=== PATIENT | female | born 1930 | race Caucasian/White ===

== ENCOUNTER → 2017-01-07 | Outpatient (CLI) | payer MEDICARE ==
[~2017-01-07] MED LIST: ASP325T; ASP325T PO; ASP81CT; ASP81CT PO; ASP81TEC; ASPI-86; ASPI-892; ATN50T; CA C1TAB26 PO; CHOL10002 PO; CHOL10003 PO; CHOL200035 PO; CLOP75TA; CLOP75TA PO; CLPD75T; COD LIVER OIL; CSPT25; D50KC; DIAZ2TAB2; DIAZ2TAB2 PO; DIAZEPAM PO; DIGO125T PO; DIGO125T18 PO; DILT30TA PO; DILT30TA30 PO; DZPM2T; EZET10TA5; FISH OIL 1,2001 EAC1 PO; FURO-125 PO; FURO20TA4 PO; HCTZ; HYDR-3720 PO; IBUP-30 PO; ISM30TCR; LEVO250T7 PO; LEVO25TA5 PO; LISI10TA2 PO; LOSA50TA36 PO; LOVAZA; MECL25TA56 PO; METO-272 PO; METO-352 PO; NTR.4SL; OMG1KC; ONDA4TAB10 PO; ONDN4T PO; POTA10CA43 PO; POTA10TA36 PO; POTA10TA6 PO; PRAV20TA3 PO; PRV20T PO; RANI150T11 PO; RIVA20TA2 PO; RNT150T PO; SCP1.5TD TOP; SOTA120T PO; SOTA80TA; SOTA80TA PO; TRIAM; TRM50T PO; VIT D OTC; VITAMIN D; WRF2.5T; WRF5T
--- OUTSIDE RECORDS SUMMARY | 2017-01-07 09:54 | XMS REPORT | Continuity of Care Document ---
Author Author [facility] Organization [facility] Address Unknown Phone Unavailable Care Team Providers Care Hardness Inspector Name Role Phone Unverified, Unverified PCP Unavailable Source Comments Some departments are not documenting in the electronic medical record. If you do not see the information that you expected, contact Release of Information in the Health Information Management department at [phone] for further assistance in locating additional records.[facility] Active Allergies and Adverse Reactions Allergen Noted Date Severity Reactions Comments Codeine 08/24/2011 SYNCOPE Demerol (Pf) 08/24/2011 STOMACH UPSET, SYNCOPE Penicillins 08/24/2011 HIVES Current Medications Prescription Sig. Disp. Refills Start End Date Status Date clopidogrel (PLAVIX) 75 Take 75 mg by mouth Active mg PO daily. ranitidine(+) (ZANTAC) Take 150 mg by mouth Active 150 mg PO tablet twice daily. sotalol (BETAPACE) 80 mg Take 80 mg by mouth twice Active PO tablet daily. pravastatin (PRAVACHOL) Take 20 mg by mouth Active 20 mg PO tablet daily. diazepam (VALIUM) 2 mg PO Take 2 mg by mouth. 1/2 Active tablet tablet at bedtime ipratropium bromide Insert 2 Sprays into nose Active (ATROVENT) 0.06 % NA as directed every 6 hours nasal spray as needed. ascorbic acid (VITAMIN C) Take 500 mg by mouth Active 500 mg PO tablet daily. cholecalciferol (Vitamin Take 1,000 Units by mouth Active D3) (VITAMIN D) 1,000 daily. unit PO Tab tablet DOCOSAHEXANOIC ACID/EPA Take by mouth. Active (FISH OIL PO) aspirin 325 mg PO tablet Take 325 mg by mouth Active daily. Active Problems Problem Noted Date CAD (coronary artery disease) 08/21/2011 Overview: Hx of CAD with stent to LAD. 08/2011 Lexiscan stress test> reportedly normal. EF nl. Cardiac pacemaker in situ 08/21/2011 Overview: Implanted for SSS. 08/2011: Device interrogation today showed multiple runs of NSVT, 31 events. Some Afib w/ RVR, others poss NSVT, 7-19 beats in duration. EP referral for evaluation of this per Dr. Blake. SSS (sick sinus syndrome) ([facility]) 08/21/2011 Overview: Pacemaker implanted. AF (paroxysmal atrial fibrillation) ([facility]) 08/21/2011 Overview: 08/2011 31 non sustained VT per device interrogation at Dr. Blake's office. On sotalol. Ventricular tachycardia, nonsustained ([facility]) 08/21/2011 Overview: 08/2011 per device interrogation at Dr Blake's office. Syncope due to orthostatic hypotension 08/21/2011 Overview: Remote hx of syncope due to orthostasis. Social History Tobacco Use Types Packs/Day Years Used Date Never Assessed Alcohol Use Drinks/Week oz/Week Comments No Last Filed Vital Signs Vital Sign Reading Time Taken Blood Pressure 122/76 08/25/2011 4:19 PM CDT Pulse 62 08/25/2011 4:10 PM CDT Temperature - - Respiratory Rate - - Height 1.664 m (5' 5.5") 08/25/2011 4:10 PM CDT Weight 60.646 kg (133 lb 11.2 08/25/2011 4:10 PM CDT oz) Body Mass Index 21.9 08/25/2011 4:10 PM CDT Oxygen Saturation - - Plan of Care Health Maintenance Due Date Last Done Comments Physical (Comprehensive) 1937 Exam Pertussis Vaccine 1939 Tetanus Vaccine 1945 Breast Cancer Screening 1968 Shingles Vaccine 1988 Osteoporosis Screening 1993 Prevnar/Pneumovax (#1) 1993 Influenza Vaccine 07/09/2015 Results from Last 3 Months Not on file
--- NOTE | 2017-01-08 06:43 | ECHOCARDIOGRAPHY REPORT ---
PROCEDURE PHYSICIAN: STEPHEN JARA DATE OF PROCEDURE: 01/07/2017 TWO DIMENSIONAL ECHOCARDIOGRAM REPORT PRIMARY PHYSICIAN: OTHER PHYSICIAN: REFERRING PHYSICIAN: Dr. Milagros Lazo ORDERING PHYSICIAN: INDICATION FOR THE PROCEDURE: MEASUREMENTS DERIVED VALUES LV DIAMETER (LAX) NORMALS NORMALS Diastolic 3.6 (3.6-5.2) Eject. Fract. 50% (60%+/-6%) Systolic (2.3-3.9) Diastolic Vol. % Shortening (0.22-0.42) Systolic Vol. Aortic Root IVS THICKNESS Diastolic 1.2 (0.6-1.1) LVPW THICKNESS Diastolic 1.2 (0.6-1.1) LA DIAMETER Systolic 5 (2.1-3.7) FINDINGS: 1. Technical quality is good. 2. The left ventricle is prominent with mild left ventricular hypertrophy noted diffusely. Systolic function appeared to be in the lower normal limits. Estimated ejection fraction 50%. Diastolic dysfunction is suggested by Doppler. 3. The left atrium is dilated. No clot or thrombus were seen within the left atrium. 4. The right atrium is dilated. Right ventricle is prominent. No clot or thrombus were seen within the right side. 5. Mitral valve is calcified with severe mitral regurgitation noted by color Doppler flow. No mitral valve prolapse. No mitral valve stenosis. 6. Aortic valve is trileaflet with moderate aortic regurgitation noted by color Doppler flow. No aortic valve stenosis. 7. Tricuspid valve is normal in morphology with severe tricuspid regurgitation noted by color Doppler flow. Doppler across tricuspid valve estimated pulmonary artery pressure of 40+ right atrial pressure. 8. Pulmonic valve is normal in morphology. 9. No pericardial effusion. CONCLUSION: 1. Mild left ventricular hypertrophy prominent left ventricle. Systolic function is in the lower normal limits. Estimated ejection fraction 50%. Diastolic dysfunction is suggested by Doppler. 2. Biatrial enlargement and prominent right ventricle with severe pulmonary hypertension. Estimated pulmonary artery pressure of 50 mmHg. 3. Severe mitral regurgitation, severe tricuspid regurgitation, moderate aortic regurgitation. 4. Deterioration compared to the study of 2016. Job ID: [id number] Dictated Date: 01/07/2017 16:31:53 City Controller Date: 01/08/2017 06:40:01 / corrina
== END ==
LOC: CARD 09:50
PROVIDERS: ATTEND Physician Assistant
DX: I35.1 Nonrheumatic aortic (valve) insufficiency (principal); I25.10 Atherosclerotic heart disease of native coronary artery without angina pectoris; I10 Essential (primary) hypertension; I65.23 Occlusion and stenosis of bilateral carotid arteries
CPT/HCPCS: 93306

== ENCOUNTER → 2017-01-11 | Outpatient (CLI) | payer MEDICARE ==
[~2017-01-11] VITALS: Ht 165.1 cm; Wt 59.4 kg
[~2017-01-11] MED LIST changes: +CATHETER FLUSH 10 ML SYR IV PRN; +REGADENOSON 0.4 MG/5 ML SYR (LEXISCAN) IV ONE
--- OUTSIDE RECORDS SUMMARY | 2017-01-11 07:39 | XMS REPORT | Continuity of Care Document ---
Author Author [facility] Organization [facility] Address Unknown Phone Unavailable Care Team Providers Care [place] Machine Feeder Name Role Phone Unverified, Unverified PCP Unavailable Source Comments Some departments are not documenting in the electronic medical record. If you do not see the information that you expected, contact Release of Information in the Health Information Management department at [phone] for further assistance in locating additional records.[facility] Active Allergies and Adverse Reactions Allergen Noted [...] per Dr. Blake. SSS (sick sinus syndrome) ([facility]) 08/21/2011 Overview: Pacemaker implanted. AF (paroxysmal atrial fibrillation) ([facility]) 08/21/2011 Overview: 08/2011 31 non sustained VT per device interrogation at Dr. Blake's office. On sotalol. Ventricular tachycardia, nonsustained ([facility]) 08/21/2011 Overview: 08/2011 per device interrogation at [...]
[2017-01-11 09:27] VITALS: BP 145/77
[2017-01-11 09:32] VITALS: BP 125/78
[2017-01-11 09:34] VITALS: BP 145/79
--- NOTE | 2017-01-11 12:27 | STRESS TEST ---
PROCEDURE PHYSICIAN: STEPHEN JARA DATE OF PROCEDURE: 01/11/2017 LEXISCAN MYOVIEW STRESS TEST REPORT REFERRING PHYSICIAN: Dr. Lazo. INDICATION: Coronary artery disease. BASELINE HEART RATE: 85 BASELINE BLOOD PRESSURE: 145/77 BASELINE EKG: Atrial fibrillation with no ischemic changes. SUMMARY: The patient received 10.33 mCi of technetium 99 Myoview and the resting images were obtained. Then the patient received 0.4 mg of Lexiscan followed by 30.7 mCi of technetium 99 Myoview. Throughout the test, there were no EKG changes. The resting and stress images were reviewed and compared in the short axis, horizontal long axis, and vertical long axis views. Review of the images showed good radiotracer uptake with no ischemia or infarction. SSS 5, SDS 0, TID value 1.01. On the gated images, the left ventricle appeared to be normal size with normal contractility. Calculated ejection fraction 70%. CONCLUSION: 1. The patient tolerated Lexiscan well. 2. No ischemia or infarction on SPECT images. 3. Normal left ventricular size and normal contractility. Calculated ejection fraction 70%. Gated images are unreliable due to underlying atrial fibrillation. Job ID: [id number] Dictated Date: 01/11/2017 11:50:46 Assistant Professor Of Radiology Date: 01/11/2017 12:24:18 / corrina
== END ==
LOC: CARD 07:36
PROVIDERS: ATTEND Physician Assistant
DX: I35.1 Nonrheumatic aortic (valve) insufficiency (principal); I25.10 Atherosclerotic heart disease of native coronary artery without angina pectoris; I65.23 Occlusion and stenosis of bilateral carotid arteries; I10 Essential (primary) hypertension
CPT/HCPCS: 78452; 93017

== ENCOUNTER 2017-07-14 06:45 | Day surgery (SDC) | payer MEDICARE ==
[~2017-07-14] VITALS: Ht 165.1 cm; Wt 59.4 kg
[2017-07-14] VITALS (10 sets, daily range): BP systolic 106–146; BP diastolic 60–79
[~2017-07-14 06:45] MED LIST changes: -CATHETER FLUSH 10 ML SYR IV PRN; -METO-272 PO; +METO-370 PO; -REGADENOSON 0.4 MG/5 ML SYR (LEXISCAN) IV ONE
[2017-07-14] MEDS ORDERED: NS IV 1000 ML 1,000 ML ONE (06:49)
[2017-07-14] MEDS ORDERED: HEParin (CATH LAB) 1,000 ML IV ONE (06:49)
--- OUTSIDE RECORDS SUMMARY | 2017-07-14 06:57 | XMS REPORT | Clinical Summary ---
Author Author [facility] Organization [facility] Address Unknown Phone Unavailable Care Team Providers Care Head Of Housekeeping Name Role Phone PCP Unavailable Source Comments Some departments are not documenting in the electronic medical record. If you do not see the information that you expected, contact Release of Information in the Health Information Management department at [phone] for further assistance in locating additional records.[facility] Allergies Active Allergy Reactions Severity Noted Date Comments Codeine SYNCOPE 08/24/2011 Meperidine (Pf) STOMACH UPSET, SYNCOPE 08/24/2011 Penicillins HIVES 08/24/2011 Current Medications Prescription Sig. Disp. Refills Start [...] per Dr. Blake. SSS (sick sinus syndrome) ([facility]) 08/21/2011 Overview: Pacemaker implanted. AF (paroxysmal atrial fibrillation) ([facility]) 08/21/2011 Overview: 08/2011 31 non sustained VT per device interrogation at Dr. Blake's office. On sotalol. Ventricular tachycardia, nonsustained ([facility]) 08/21/2011 Overview: 08/2011 per device interrogation at Dr Blake's office. Syncope due to orthostatic hypotension 08/21/2011 Overview: Remote hx of syncope due to orthostasis. Family History Relation Name Status Comments Father Mother Social History Tobacco Use Types Packs/Day Years Used Date Never Assessed Alcohol Use Drinks/Week oz/Week Comments No Sex Assigned at Date Recorded Not on file Last Filed Vital Signs Vital Sign Reading Time Taken Blood Pressure 122/76 08/25/2011 4:19 PM CDT Pulse 62 08/25/2011 4:10 PM CDT Temperature - - Respiratory Rate - - Oxygen Saturation - - Inhaled Oxygen - - Concentration Weight 60.6 kg (133 lb 11.2 oz) 08/25/2011 4:10 PM CDT Height 166.4 cm (5' 5.5") 08/25/2011 4:10 PM CDT Body Mass Index 21.91 08/25/2011 4:10 PM CDT Plan of Treatment Health Maintenance Due Date Last Done Comments PHYSICAL (COMPREHENSIVE) 1937 EXAM PERTUSSIS VACCINE 1939 TETANUS VACCINE 1945 SHINGLES VACCINE 1988 OSTEOPOROSIS SCREENING 1993 PREVNAR/PNEUMOVAX (#1) 1993 INFLUENZA VACCINE 07/09/2017 Results Not on filefrom Last 3 Months
[2017-07-14] MEDS ORDERED: BACITRACIN INJECTION 50,000 UNIT, SODIUM CHLORIDE 0.9% IRRIGATIO 500 ML IR ONE ×2 (07:00)
[2017-07-14] MEDS ORDERED: NS IV 1000 ML 1,000 ML IV SCH ×2 (07:15→10:03)
[2017-07-14 07:31] LABS: MEAN PLATELET VOLUME 10.6 FL (7.4-10.4); RED BLOOD COUNT 4.98 10^6/uL (4.35-5.85); RED CELL DISTRIBUTION WIDTH 14.9 % (10.0-14.5); WHITE BLOOD COUNT 7.9 10^3/uL (4.3-11.0)
--- NOTE | 2017-07-14 07:31 | Diagnostic Imaging Report ---
INDICATION: Coronary artery disease. Hypertension. COMPARISON: CT chest dated 07/14/2016 FINDINGS: Single frontal radiographic view of the chest was obtained and demonstrates mild cardiomegaly. Pulmonary vasculature is within normal limits. Left-sided dual-lead pacemaker is noted. Evaluation of the lung gutiérrez demonstrates a 3.2 x 2.7 cm masslike opacity in the left lower lung field. This corresponds to PET positive lesion seen on previously performed CT/PET. Right lung is relatively clear. There is no large effusion or pneumothorax on either side. Bony structures show no gross acute abnormalities. IMPRESSION: 1. Mild cardiomegaly, but no evidence of failure. 2. Pulmonary mass on the left. Dictated by: Dictated on workstation # [id number]
[2017-07-14 07:33] LABS: BILIRUBIN,URINE NEGATIVE (NEGATIVE); KETONES,URINE NEGATIVE (NEGATIVE); LEUKOCYTE ESTERASE ,URINE NEGATIVE (NEGATIVE); NITRITE,URINE NEGATIVE (NEGATIVE); PH,URINE 5 (5-9); PROTEIN,URINE NEGATIVE (NEGATIVE); UROBILINOGEN,URINE NORMAL (NORMAL)
[2017-07-14 07:42] LABS: WBC,URINE RARE /HPF
[2017-07-14] MEDS ORDERED: VANCOMYCIN 1000 MG/VIAL ONE (07:42)
[2017-07-14] MEDS ORDERED: NS (IVPB) 250 ML ONE (07:42)
[2017-07-14 07:45] LABS: INR 1.1 (0.8-1.4); PROTHROMBIN TIME PATIENT 13.9 SEC (12.2-14.7)
[2017-07-14 07:54] LABS: BILIRUBIN,TOTAL 0.7 MG/DL (0.1-1.0); CALCIUM 9.3 MG/DL (8.5-10.1); CREATININE SERUM 1.09 MG/DL (0.60-1.30); TOTAL PROTEIN 7.1 GM/DL (6.4-8.2)
--- NOTE | 2017-07-14 08:24 | Cardiac Procedure Note-CS/ASA ---
Pre-Procedure Note Pre-Op Procedure Note H&P Reviewed The H&P was reviewed, patient examined and no changes noted. Date H&P Reviewed: Jul 14, 2017 Time H&P Reviewed: 08:24 Conscious Sedation Pre-Proced Time Reviewed: 08:24 ASA Class: 3 Airway Mallampati Classification: (kotlik appropriate class) I. II. III, IV Lungs Heart ASA score ASA 1: a normal healthy patient ASA 2: a patient with a mild systemic disease (mid diabetes, controlled hypertension, obesity x ASA 3: a patient with a severe systemic disease that limits activity (angina , COPD, prior Myocardial infarction) ASA 4: a patient with an incapacitating disease that is a constant threat to life (CHF, renal failure) ASA 5: a moribund patient not expected to survive 24 hrs. (ruptured aneurysm) ASA 6: a declared brain patient whose organs are being harvested. For emergent operations, add the letter E after the classification Grade 3 Sedation Plan: Analgesia, Amnesia, Plan communicated to team members, Discussed options with patient/fam, Discussed risks with patient/fam Note The patient is an appropriate candidate to undergo the planned procedure, sedation, and anesthesia. The patient immediately re-assessed prior to indication. STEPHEN JARA MD Jul 14, 2017 08:24
[2017-07-14] MEDS ORDERED: fentaNYL INJECTION 100 MCG/2 ML AMP ONE (08:49)
[2017-07-14] MEDS ORDERED: MIDAZOLAM 5 MG/5 ML (VERSED) VIAL ONE (08:49)
[2017-07-14] MEDS ORDERED: APIX2.5T PO (09:11)
[2017-07-14] MEDS ORDERED: BENZ200C51 PO (09:11)
[2017-07-14] MEDS ORDERED: MONT10TA21 PO (09:11)
[2017-07-14] MEDS ORDERED: FURO20TA4 PO (09:11)
[2017-07-14] MEDS ORDERED: CETI10TA17 PO (09:11)
[2017-07-14] MEDS ORDERED: NF-MET200T PO (09:11)
[2017-07-14] MEDS ORDERED: CEFD300C3 PO ×2 (09:11→10:07)
[2017-07-14] MEDS ORDERED: POTA10CA43 PO (09:11)
[2017-07-14] MEDS ORDERED: NEO/POLY/BAC (NEOSPORIN) OINT 15 GM TUBE ONE (10:02)
--- NOTE | 2017-07-14 10:12 | ICD Generator Change ---
ICD Generator Change Physician (s)/Director Of Hemophilia (s) Physician STEPHEN JARA MD Pre-Procedure Diagnosis Pre-Procedure Diagnosis: sick sinus syndrome, paroxysmal atrial fibrillation Post-Procedure Note Procedure Start Date: Jul 14, 2017 Procedure Start Time: 09:00 Name of Procedure: dual chamber pacemaker generator replacement Findings/Procedure Note After explaining the procedure to the patient all pros and cons were explained, patient was placed on the cardiac catheterization laboratory, local anesthesia applied then skin incision was made, pacemaker generator was extracted, leads were evaluated. New [employer] device [address] Dr serial number [id number] was attached to the leads and placed in the pocket. Skin pocket was closed on 2 layer suture with no complication Conclusion Successful dual-chamber pacemaker generator replacement with no complications Anesthesia Type: Conscious Sedation Estimated blood loss (mL): 5 ml Contrast Amount: 0 ml Post-Procedure Diagnosis Post-operative diagnosis: sick sinus syndrome Paroxysmal atrial fibrillation Hypertension Hyperlipidemia STEPHEN JARA MD Jul 14, 2017 10:12
[2017-07-14] MEDS ORDERED: PATIENT MAY USE OWN MEDS, ALL PO SCH (10:15)
[2017-07-14] MEDS ORDERED: LEVOFLOXACIN 500 MG TAB (LEVAQUIN) PO NR (10:15)
== END 2017-07-14 13:00 | disposition home or self-care (01) ==
LOC: CATH 06:45
PROVIDERS: ATTEND Internal Medicine Cardiovascular Disease
DX: Z45.010 Encounter for checking and testing of cardiac pacemaker pulse generator [battery] (principal); I49.5 Sick sinus syndrome; I48.0 Paroxysmal atrial fibrillation; I25.10 Atherosclerotic heart disease of native coronary artery without angina pectoris; I10 Essential (primary) hypertension; I08.3 Combined rheumatic disorders of mitral, aortic and tricuspid valves; I70.1 Atherosclerosis of renal artery; E78.5 Hyperlipidemia, unspecified; Z79.01 Long term (current) use of anticoagulants; Z79.899 Other long term (current) drug therapy; Z95.5 Presence of coronary angioplasty implant and graft
CPT/HCPCS: 33228; 36415; 36430; 71010; 80053; 80061; 81000; 85027; 85610; 85730; 87081; 93005